=== PATIENT | male | born 1990 | race Caucasian/White ===

== ENCOUNTER 2017-04-16 22:27 | Emergency (ER) | payer OTHER ==
[~2017-04-16] VITALS: Ht 170.2 cm; Wt 78.9 kg
[2017-04-16 22:54] VITALS: BP 137/81
--- NOTE | 2017-04-16 23:07 | ED SKIN/ALLERGY COMPLAINT ---
History of Present Illness General Chief Complaint: Skin Rash/ Abcess Stated Complaint: POISON TAMIKA RASH ON ARMS Source: patient Exam Limitations: no limitations Vital Signs & Intake/Output Vital Signs & Intake/Output Vital Signs Date Time Temp Pulse Resp B/P B/P Pulse O2 O2 Flow FiO2 Mean Ox Delivery Rate 04/16 2312 Room Air 04/16 2254 97.8 70 16 137/81 99 Room Air ED Intake and Output 04/17 0000 04/16 1200 Intake Total Output Total Balance Patient 174 lb Weight Weight Reported by Patient Measurement Method Allergies Coded Allergies: No Known Allergies (04/16/17) Reconcile Medications Gabapentin 300 MG CAPSULE 1 CAP PO TID (Reported) Methylprednisolone. (Medrol) 4 MG TAB.DS.PK 1 DP PO AD rash 6 on day 1 then reduce by one tablet daily until gone Triage Note: TRIAGE: TO ED WITH BILATERAL FOREARM RASH, ? POISON TAMIKA X2 DAYS, THAT HAS SPREAD TO FACE, TORSO, GROIN. RASH WORSE TO R FOREARM THAN LEFT. AFEBRILE. Triage Nurses Notes Reviewed? yes Onset: Gradual Duration: day(s): (2) Timing: recent history Severity: moderate Severity Numbers: 7 Location: extremities Possible Factors: exposure to allergen HPI: Patient is a 26-year-old male presenting to the emergency department with chief complaint of pruritic rash on bilateral forearms that started about 2 days ago progressively getting worse and spreading. Denies any shortness of breath. No chest pain palpitations. No nausea or vomiting. He has been applying calamine lotion without relief. Reports that it still spreading. History of severe allergy to poison tamika. Has been outside recently. ([facility]) Past History Travel History Traveled to [place] past 21 day No Medical History Any Pertinent Medical History? see below for history Neurological: NONE EENT: NONE Cardiovascular: NONE Respiratory: NONE Gastrointestinal: NONE Hepatic: NONE Renal: NONE Musculoskeletal: NONE Psychiatric: NONE Endocrine: NONE Blood Disorders: NONE Cancer(s): NONE Surgical History Surgical History: non-contributory Psychosocial History What is your primary language Divehi Tobacco Use: Never used ETOH Use: denies use Illicit Drug Use: denies illicit drug use Family History Hx Contributory? No ([facility] KU) Review of Systems Review of Systems Constitutional: Reports: no symptoms. Comments Review of systems: See HPI, All other systems negative. Constitutional, no chills fever or weight loss HEENT: No visual changes no sore throat no congestion Cardiovascular: No chest pain ,palpitation , orthopnea Skin, no jaundice Respiratory: No dyspnea cough sputum or hemoptysis GI: No nausea no vomiting Muscle skeletal: no back pain, no neck pain, Neurologic: No numbness no confusion, no headaches Psych: No stress anxiety Immunology: No splenectomy or history of AIDS ([facility]) Physical Exam Physical Exam General Appearance: well developed/nourished, no apparent distress, alert, awake , comfortable Comments: Well-developed well-nourished person in no acute distress HEENT: Pharynx normal. No swelling or edema. Neck: Normal inspection Cardiovascular: Regular rate and rhythms no murmurs rubs or gallops, normal JVP Respiratory: Chest nontender. No respiratory distress.breath sounds clear to auscultation bilaterally Extremity: No edema Neuro: Alert oriented x3, motor sensory normal Skin: Erythematous, vesicular weeping rash noted on the upper extremities bilaterally, both forearms. Right greater than left. Nontender to palpation. Excoriations present. Psych: Normal mood and affect. ([facility]) Progress Differential Diagnosis: contact dermatitis, poison tamika,irritant dermatitis, allergic reaction, nonspecific rash Plan of Care: Clinical presentation of poison tamika. History of severe allergy. Patient will be treated with steroids. Educated Christa Benadryl [id number]. Patient nontoxic. Vital stable. Lungs clear. (VIC KU) Departure Departure Time of Disposition: 2305 Disposition: HOME OR SELF CARE Condition: Stable Clinical Impression Primary Impression: Rash Referrals: PATIENT HAS NO PRIMARY CARE DR (PCP/Family) Additional Instructions: Follow-up with your primary care physician: Make appointment. Take medications as prescribed. Avoid scratching. Return for worsening symptoms or concerns. Departure Forms: Customer Survey General Discharge Information Prescriptions: Current Visit Scripts Methylprednisolone. (Medrol) 1 DP PO AD #1 DP 6 on day 1 then reduce by one tablet daily until gone ([facility]) PA/SURGICAL PATHOLOGIST Co-Sign Statement Statement: ED Attending supervision documentation- [] I saw and evaluated the patient. I have also reviewed all the pertinent lab results and diagnostic results. I agree with the findings and the plan of care as documented in the PA's/SURGICAL PATHOLOGIST's documentation. [X] I have reviewed the ED Record and agree with the PA's/SURGICAL PATHOLOGIST's documentation. [] Additions or exceptions (if any) to the PAs/SURGICAL PATHOLOGIST's note and plan are summarized below: [] (NEGRO CAMARA,CRISTI Lira)
[2017-04-16] MEDS ORDERED: MEDROL4 M2 PO (23:10)
[2017-04-16] MEDS ORDERED: GABAPENTIN300 M2 PO (23:12)
== END 2017-04-16 23:16 ==
LOC: ERH 22:27
DX: R21 Rash and other nonspecific skin eruption (principal)